=== PATIENT | female | born 1990 | race Hispanic/Latino ===

== ENCOUNTER 2017-06-10 19:21 | Emergency (ER) | payer SELFPAY ==
[~2017-06-10] VITALS: Ht 157.5 cm; Wt 113.0 kg
[~2017-06-10 19:21] MED LIST: CIPROFLOXACN500 MG PO; ZOFRAN4 MG/TAB PO
[2017-06-10 20:30] LABS: INFLUENZA A NONE DETECTED (NONE DETECT); INFLUENZA B NONE DETECTED (NONE DETECT)
[2017-06-10] MEDS ORDERED: CLARITIN10 M1 PO (20:30)
[2017-06-10] MEDS ORDERED: AMOXICILLIN500 MG PO (20:30)
[2017-06-10 20:37] VITALS: BP 129/74
== END 2017-06-10 20:37 | disposition home or self-care (01) | DRG 153 ==
LOC: ED 19:21
PROVIDERS: Emergency Medicine
DX: J02.0 Streptococcal pharyngitis (principal); R50.9 Fever, unspecified; R51 Headache